=== PATIENT | male | born 1970 | race Hispanic/Latino ===

== ENCOUNTER 2017-10-27 10:04 | Emergency (ER) | payer OTHER ==
[~2017-10-27] VITALS: Ht 180.3 cm; Wt 113.4 kg
[2017-10-27] MEDS ORDERED: MORPHINE SULFATE 4 MG/ML SYR IV STA (10:18)
[2017-10-27] MEDS ORDERED: SODIUM CHLORIDE 0.9% 1000ML 1,000 ML IV STA (10:18)
[2017-10-27] MEDS ORDERED: ONDANSETRON HCL INJ 2 MG/ML VIAL IV STA (10:18)
[2017-10-27] MEDS ORDERED: DEXAMETHASONE SOD PHOS 10 MG/1 ML VIAL IV ONE (10:30)
[2017-10-27] MEDS ORDERED: MORPHINE SULFATE 2 MG/ML SYR ONE (10:54)
[2017-10-27] MEDS ORDERED: CEFTRIAXONE SOD 1 GM VIAL IV NR (11:00)
[2017-10-27 11:16] LABS: BASOPHILS # (AUTO) 0.1 (0.0-0.1); BASOPHILS % 0.5 % (0.0-1.0); EOSINOPHILS # (AUTO) 0.2 (0.0-0.4); EOSINOPHILS % 1.7 % (0.0-6.0); HEMATOCRIT 46.9 % (38.2-49.6); HEMOGLOBIN 15.6 g/dL (14.0-18.0); LYMPHOCYTES # (AUTO) 1.4 (1.0-3.2); LYMPHOCYTES % 10.1 % (18.0-39.1); MEAN CORPUSCULAR HEMOGLOBIN 26.7 pg (28-32); MEAN CORPUSCULAR HGB CONC 33.3 g/dL (31-35); MEAN CORPUSCULAR VOLUME 80.2 fL (81-99); MONOCYTES # (AUTO) 0.9 (0.2-0.8); MONOCYTES % 6.8 % (4.4-11.3); NEUTROPHILS # (AUTO) 11.1 (2.1-6.9); NEUTROPHILS % 80.5 % (38.7-80.0); PLATELET COUNT 340 x10e3/uL (140-360); RED BLOOD COUNT 5.85 x10e6/uL (4.3-5.7); RED CELL DISTRIBUTION WIDTH 14.2 % (11.7-14.4)
[2017-10-27 11:38] LABS: ALANINE AMINOTRANSFERASE 41 IU/L (0-55); ALBUMIN 3.9 g/dL (3.5-5.0); ALBUMIN/GLOBULIN RATIO 0.7 (0.8-2.0); ALKALINE PHOSPHATASE 99 IU/L (40-150); ANION GAP 13.8 mmol/L (8-16); BLOOD UREA NITROGEN 17 mg/dL (7-26); BUN/CREATININE RATIO 17 (6-25); CALCIUM 9.7 mg/dL (8.4-10.2); CARBON DIOXIDE 26 mmol/L (22-29); CHLORIDE 103 mmol/L (98-107); CREATININE, SERUM 1.03 mg/dL (0.72-1.25); EST GLOMERULAR FILTRATION RATE > 60 ML/MIN (60-); GLUCOSE 119 mg/dL (74-118); POTASSIUM 3.8 mmol/L (3.5-5.1); SODIUM 139 mmol/L (136-145)
[2017-10-27] MEDS ORDERED: IOPAMIDOL 370 MG/ML 200 ML INFUS..BTL INJ ONE (13:14)
[2017-10-27] MEDS ORDERED: SODIUM CHLORIDE 0.9% 50ML 50 ML ONE (13:14)
--- NOTE | 2017-10-27 13:22 | Diagnostic Imaging Report ---
History: Unable to swallow Comparison studies: None Technique: Axial, coronal and sagittal images from the skull base to the thoracic inlet. Coronal and sagittal images reconstructed from the axial data. Intravenous contrast: 100 cc of Omnipaque 300. Findings: Masses: Peripherally enhancing fluid collection is seen at the right superior and lateral peritonsillar region measuring 2.0 x 2.5 x 1.5 cm ([id number]). Enlarged bilateral palatine tonsils results in moderate to severe narrowing of the aerodigestive tract Lymph nodes: Reactive bilateral right more than left level 2 lymph nodes Vessels: Arteries and veins are patent. Glands (thyroid, parotid and submandibular): 1 cm enhancing nodule is seen at the left thyroid lobe. The remaining glands are normal in size and symmetric. No masses. Orbits: No abnormalities. Paranasal sinuses: Mucosal thickening at the right maxillary sinus Temporal bones: No abnormalities. Skull base and facial bones: Intact. Cervical spine: Grossly patent canal and foramina IMPRESSION: 1. Bilateral tonsillitis with right peritonsillar abscess resulting in moderate to severe narrowing of the aerodigestive tract. 2. Reactive level 2 lymph nodes. The above finding was reported and neck knowledge by Dr. Bernardo abdomen 5:00 PM 10/27/2017. Signed by: DR David Evans M.D. on 10/27/2017 1:18 PM
== END 2017-10-27 13:33 | disposition home or self-care (01) ==
LOC: ER 10:04
DX: J36 Peritonsillar abscess (principal)
CPT/HCPCS: 36415; 70491; 80053; 85025; 99284; J0696; J1100; J2270; J2405; J7030; Q9967